=== PATIENT | female | born 1955 | race Caucasian/White ===

== ENCOUNTER 2020-08-30 03:30 | Emergency (ER) | payer MEDICAID, OTHER ==
[~2020-08-30] VITALS: Ht 170.2 cm; Wt 47.6 kg
--- NOTE | 2020-08-30 03:40 | NUR ---
Pt presents to ER for psych eval. Pt not answering questions. Pt states she is here because "I have a brain tumor. Everyone has a brain tumor." Placed in [facility]. No acute distress noted. Awaiting MD che.
[2020-08-30] MEDS ORDERED: IV NORMAL SALINE 500 ML BAG IV ONE (03:45)
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
[2020-08-30] MEDS ORDERED: HALOPERIDOL LACTATE 5 MG/1 ML VIAL IM ONE (04:30)
[2020-08-30] MEDS ORDERED: HALOPERIDOL LACTATE 5 MG/1 ML VIAL ONE (04:33)
--- NOTE | 2020-08-30 04:42 | NUR ---
Pt. taken to CT.
[2020-08-30] MEDS ORDERED: DIAZ2TAB PO (04:46)
--- NOTE | 2020-08-30 04:46 | NUR ---
Per boyfriend, Pt takes valium, unknown dose, pt started acting crazy on/off the past two-three days.
[2020-08-30 04:48] LABS: HEMATOCRIT 41.3 % (31.2-41.9); MEAN CORPUSCULAR HEMOGLOBIN 28.2 uug (24.7-32.8); MEAN CORPUSCULAR VOLUME 85.1 fL (75.5-95.3); PLATELET COUNT (AUTO) 187 K/uL (179-408)
--- NOTE | 2020-08-30 04:51 | NUR ---
Pt back from CT
[2020-08-30 04:54] LABS: ETHANOL < 3 MG/DL (0-0)
[2020-08-30 04:55] LABS: CARBON DIOXIDE 30 mmol/L (21-32); CHLORIDE 105 mmol/L (98-107); GLUCOSE 101 mg/dL (74-106); POTASSIUM 3.8 mmol/L (3.5-5.1); UREA NITROGEN, BLOOD 22 mg/dL (7-18)
[2020-08-30 05:00] LABS: *BILIRUBIN,URIN NEGATIVE (NEGATIVE); *BLOOD, URINE NEGATIVE (NEGATIVE); *CLARITY,URINE SLIGHTLY CLOUDY (CLEAR); *COLOR,URINE YELLOW (YELLOW); *KETONES,URINE NEGATIVE (NEGATIVE); *UROBILINOGEN,URINE 0.2 E.U./dl (NORMAL); LEUKOCYTE ESTERASE ,URINE TRACE (NEGATIVE); NITRITE, URINE POSITIVE (NEGATIVE); UGLUCOSE NEGATIVE (NEGATIVE)
[2020-08-30 05:04] LABS: *AMPHETAMINE, URINE POSITIVE (NEGATIVE); *CANNABINOID, URINE POSITIVE (NEGATIVE); *COCCAINE, URINE NEGATIVE (NEGATIVE); *OPIATE, URINE POSITIVE (NEGATIVE); *PHENCYCLIDINE SCREEN,URINE POSITIVE (NEGATIVE)
--- NOTE | 2020-08-30 05:05 | NUR ---
Patient asleep in [facility]. No acute distress noted.
[2020-08-30 05:09] LABS: ALANINE AMINOTRANSFERASE 26 U/L (14-59); ALKALINE PHOSPHATASE 104 U/L (50-136); ASPARTATE AMINOTRANSFERASE 97 U/L (15-37); BILIRUBIN,DIRECT 0.1 mg/dL (0.0-0.2); BILIRUBIN,TOTAL 0.4 mg/dL (0.2-1.0); TOTAL PROTEIN, SERUM 7.7 g/dL (6.4-8.2)
[2020-08-30 05:10] LABS: RBC,URINE 0-3 /HPF (0-3)
[2020-08-30 05:11] LABS: BACTERIA,URINE MANY /HPF (NONE SEEN); SQUAMOUS EPITHELIAL CELL,UR FEW /HPF (NONE SEEN)
[2020-08-30 05:12] LABS: ACETAMINOPHEN < 2.0 ug/mL (10-30)
[2020-08-30 05:13] LABS: THYROID STIMULATING HORMONE 4.126 mIU/mL (0.358-3.740)
--- NOTE | 2020-08-30 05:36 | NUR ---
Pt noted to have pulled out IV. Per Dr. Salas to hold off on reinserting IV at this time.
--- NOTE | 2020-08-30 05:41 | NUR ---
Per Dr. Salas pt is medically clear and plan is to wait for Pinky in AM for evaluation.
[2020-08-30] MEDS ORDERED: levoFLOXacin 750 MG TABLET PO ONE (05:45)
[2020-08-30] MEDS ORDERED: CEphaleXIN 500 MG CAPSULE PO ONE (06:45)
--- NOTE | 2020-08-30 06:59 | NUR ---
Report given to Cherelle QUINTANILLA
--- NOTE | 2020-08-30 07:02 | NUR ---
Hands off nursing report was received from previous RN: this patient was medically cleared by Dr Salas. Per report from RN Monica, this patient also needs psych evaluation & po meds when more alert & less sleepy. Patient was earlier given haldol for her acute psychotic behavior. Spouse [email or web address]. Patent is sleeping, arousable by soft touch with opening of eyes but she goes back to sleep immediately, respiration:easy, nonlabored & symmetrical, skin is warm & dry
[2020-08-30] MEDS ORDERED: CEphaleXIN 500 MG CAPSULE ONE (08:01)
[2020-08-30] MEDS ORDERED: levoFLOXacin 750 MG TABLET ONE (08:01)
--- NOTE | 2020-08-30 09:13 | NUR ---
Breakfast [email or web address]. Patient is still sleeping, calm when awaken. Per Dr Diaz, patient is for possible discharge if stable (e.g. denies suicidal, denies homicidal and/or@ baseline behavior as validated by family)
--- NOTE | 2020-08-30 09:47 | NUR ---
Patient is eating breakfast. [email or web address]
--- NOTE | 2020-08-30 10:14 | NUR ---
Patient is sleeping again, after eating breakfast. Patient's spouse (boyfriend) left the patient@[email or web address] 0936am to feed their [email or web address].
--- NOTE | 2020-08-30 12:32 | NUR ---
Lunch [email or web address].
--- NOTE | 2020-08-30 15:50 | NUR ---
Patient is resting comfortably on gurney with eyes closed. ER observation continues, no acute change in condition seen.
--- NOTE | 2020-08-30 17:19 | NUR ---
Patient is sleeping, easily arousable but still too sleepy per Dr Diaz. ER observation status in progress.
--- NOTE | 2020-08-30 19:07 | NUR ---
Patient is more alert, able to move from bed to chair unassisted, still for disposition. Hands off report given to DWIGHT Moya & DWIGHT Hernández. Efraín [email or web address].
--- NOTE | 2020-08-30 20:05 | NUR ---
Patient is alert and orientated, states that she wishes to go home. MD West made aware. Simon Moran "PERSON TO NOTIFY" on chart has been notified, and states he will be coming to pick her up.
[2020-08-30] MEDS ORDERED: CEPH500C2 PO (20:27)
[2020-08-30] MEDS ORDERED: NALO4SPR NS (20:27)
[2020-08-30 20:30] VITALS: BP 120/64
--- NOTE | 2020-08-30 20:30 | NUR ---
Patient discharged to home in stable condition. Written and verbal after care instructions given. Patient verbalizes understanding of instructions. Stressed follow up or return to ER for worsening s/s. Patient ambulates with steady gait, V/S stable, left with all personal belongings, No IV saline lock present on patient.
--- NOTE | 2020-08-30 20:30 | NUR ---
Note felipe in EDM - 08/30/20 at 2046 by AMY Patient discharged to home in stable condition. Written and verbal after care instructions given. Patient verbalizes understanding of instructions. Stressed follow up or return to ER for worsening s/s. Patient ambulates with steady gait, V/S stable, left with all personal belongings.
== END 2020-08-30 20:30 | disposition home or self-care (01) ==
LOC: ER 03:38
DX: F15.129 Other stimulant abuse with intoxication, unspecified (principal); N39.0 Urinary tract infection, site not specified; F12.10 Cannabis abuse, uncomplicated; F11.10 Opioid abuse, uncomplicated; F19.129 Other psychoactive substance abuse with intoxication, unspecified; F16.90 Hallucinogen use, unspecified, uncomplicated; G92 Toxic encephalopathy; Z82.49 Family history of ischemic heart disease and other diseases of the circulatory system; G93.89 Other specified disorders of brain; Z20.822 Contact with and (suspected) exposure to COVID-19; R94.31 Abnormal electrocardiogram [ECG] [EKG]
CPT/HCPCS: 36415; 70450; 71045; 80048; 80076; 80299; 80307; 80320; 81001; 82140; 83605; 84443; 84484; 85025; 85730; 87077; 87086; 87186; 87426; 93005; 96360; 96372; 99285; J1630; 70030-TC; A4663; G0480